=== PATIENT | male | born 1990 | race Caucasian/White ===

== ENCOUNTER 2023-01-27 10:43 | Emergency (ER) | payer OTHER, SELFPAY ==
[2023-01-27 10:57] VITALS: BP 141/77; PULSE 87; RESP 18; TEMP 36.6; O2SAT 98
--- NOTE | 2023-01-27 11:03 | ED.URI ---
HPI - URI/Sore Throat General Chief Complaint: Upper Respiratory Infection Stated Complaint: Body Aches,Diarrhea,Fatigue Time Seen by Provider: 01/27/23 10:54 Source: patient and RN notes reviewed Limitations: no limitations History of Present Illness HPI Narrative: Patient is a 32-year-old male who presents to the [facility] with complaints of generalized fatigue, body aches, and chills that started on Wednesday. He also reports a few episodes of diarrhea. Denies abdominal pain, blood in the stool, nausea, vomiting. He denies recent fevers. Denies cough, chest pain, short of breath. He reports some nasal congestion and drainage. Patient states that his son tested positive for strep last night. Patient also requesting wound check. They found he had a recent Vasectomy about 1 week ago. Patient states that his 2-year-old accidently kicked him in the testicle last night, which caused him some pain. States that the pain is slowly improving. He denies swelling, redness, drainage. Related Data Home Medications Medication Instructions Recorded Confirmed cetirizine 10 mg tablet (Zyrtec) 10 mg PO DAILY 01/27/23 01/27/23 venlafaxine 75 mg capsule,extended 75 mg PO DAILY 01/27/23 01/27/23 release 24 hr Allergies Allergy/AdvReac Type Severity Reaction Status Date / Time No Known Allergies Allergy Mild Verified 01/27/23 10:49 Review of Systems Review of Systems: CONSTITUTIONAL: Denies fever or sweats. Reports chills, fatigue. EYES: Denies visual changes, redness, or discharge. ENT: Denies ear pain and sore throat. Reports nasal congestion and drainage. CARDIOVASCULAR: Denies chest pain, palpitations, or edema. RESPIRATORY: Denies cough or dyspnea. GASTROINTESTINAL: Denies abdominal pain, nausea and vomiting. Reports diarrhea. GENITOURINARY: Denies dysuria or hematuria. SKIN: Denies rash or itching. MUSCULOSKELETAL: Denies back pain, joint pain,. Reports generalized body aches. NEUROLOGIC: Denies headache, numbness, or weakness. Pertinent positives per HPI. PMFSH Comments At the time of my signature, I reviewed and agree with the nursing past medical, surgical, social, and family history. There is no relevant family history pertinent to the patient complaint. Exam Narrative: GENERAL: This is a well-nourished, well-developed patient, in no apparent distress. HEAD: normocephalic, atraumatic. EYES: Sclera clear/white. Vision is grossly intact. EARS: External ears normal, auditory canals clear and without drainage. Hearing grossly intact. NOSE: External nose normal with no obvious nasal discharge, nares without redness. Mild congestion. THROAT: Mucous membranes moist, oropharyngeal erythema without exudate or ulceration. NECK: Neck supple, non-tender without lymphadenopathy, masses or thyromegaly. CARDIOVASCULAR: Regular rate and rhythm without murmurs, gallops, or rubs. RESPIRATORY: Clear to auscultation. Breath sounds equal bilaterally. No wheezes, rales, or rhonchi. GASTROINTESTINAL: Abdomen soft, non-tender, nondistended. Bowel sounds are active. No hepato-splenomegaly, or palpable masses. No guarding. : Vasectomy incision sites are healing well. There are no signs of infection, erythema, swelling. Skin glue still present. There is no testicular tenderness, erythema, or swelling present. SKIN: warm, intact with no suspicious lesions or rash, good texture and turgor. NEURO: awake, alert, and oriented to person, place and time. There were no obvious focal neurologic abnormalities. Course Course Level of Care: Express Care Visit Vital Signs Vital signs: Vital Signs Temperature 97.8 F 01/27/23 10:57 Pulse Rate 87 01/27/23 10:57 Respiratory Rate 18 01/27/23 10:57 Blood Pressure 141/77 H 01/27/23 10:57 Pulse Oximetry 98 01/27/23 10:57 Oxygen Delivery Room Air 01/27/23 10:57 Temperature 97.8 F 01/27/23 10:57 Pulse Rate 87 01/27/23 10:57 Respiratory Rate 18 01/27/23 10:57 Blood Pr
== END 2023-01-27 11:24 | disposition home or self-care (01) ==
PROVIDERS: Emergency Provider Nurse Practitioner; PCP Family Medicine
DX: B34.9 Viral infection, unspecified (principal); Z48.01 Encounter for change or removal of surgical wound dressing; F41.9 Anxiety disorder, unspecified; Z98.52 Vasectomy status; Z86.16 Personal history of COVID-19
CPT/HCPCS: 87081; 87880; 99213; G0463

== ENCOUNTER 2024-06-25 09:02 | Emergency (ER) | payer SELFPAY ==
--- NOTE | ~2024-06-25 | XR_ITS ---
EXAMINATION: [id number] DATE: 06/25/2024 09:36 INDICATION: Mid anterior chest pain post fall from trampoline 8 days prior TECHNIQUE: AP view of the chest and ribs with 2 additional views of the left ribs were obtained. COMPARISON: None FINDINGS: No rib fractures identified. No pneumothorax. No focal infiltrates, pleural effusion or pulmonary stanley ma. Cardiomediastinal silhouette is normal. IMPRESSION: 1. No rib fracture or acute cardiopulmonary disease. Reviewed, dictated and finalized at location A.
--- NOTE | 2024-06-25 09:06 | ED.GENADULT ---
HPI - General Adult General Chief complaint: Extremity Injury, Upper Stated complaint: left side rib pain Time Seen by Provider: 06/25/24 09:45 Source: patient, RN notes reviewed and old records reviewed Mode of arrival: ambulatory Limitations: no limitations History of Present Illness HPI narrative: 33-year-old male presents to the [facility] with complaints of left-sided rib pain last wednesday fall to the left side, reports [place] was [place], fell landing on a metal part the [email or web address] States that Advil has been helping No bruising or swelling noted. Pain is worse when he coughs or sneezes Onset (ago): week(s) (1) Treatments prior to arrival: NSAID Related Data Home Medications Medication Instructions Recorded Confirmed cetirizine 10 mg tablet (Zyrtec) 10 mg PO DAILY 01/27/23 06/25/24 venlafaxine 75 mg capsule,extended 75 mg PO DAILY 01/27/23 06/25/24 release 24 hr Allergies Allergy/AdvReac Type Severity Reaction Status Date / Time No Known Allergies Allergy Mild Verified 06/25/24 09:07 Review of Systems Review of Systems: All systems reviewed & are unremarkable except as noted in HPI and below Constitutional: Constitutional: Reports no additional constitutional complaints Eyes: Eyes: Reports no additional eye complaints ENT: Reports system reviewed and no additional complaints, except as documented Cardiovascular: Cardiovascular: Reports no additional cardiovascular complaints, Denies chest pain and Denies dyspnea Respiratory: Respiratory: Reports no additional respiratory complaints, Denies chest congestion, Denies cough and Denies dyspnea Gastrointestinal: Gastrointestinal: Reports no additional gastrointestinal complaints, Denies abdominal pain, Denies nausea and Denies vomiting Musculoskeletal: Musculoskeletal: Reports as per HPI Integumentary/Breasts: Skin/Breast: Reports system reviewed and no additional complaints, except as docu Neurologic: Reports system reviewed and no additional complaints, except as documented Psychiatric: Psychiatric: Reports no additional psychiatric complaints Allergic/Immunologic: Allergic/Immunologic: Reports no additional allergic/immunologic complaints PMFSH Comments At the time of my signature, I reviewed and agree with the nursing past medical, surgical, social, and family history. There is no relevant family history pertinent to the patient complaint. Exam Const: General: cooperative, healthy appearing, comfortable, no acute distress, well developed, alert and well nourished Nutritional Appearance: well nourished Orientation/consciousness: patient oriented x3 Limitations: no limitations HENMT: Head: normal to inspection Ears: hearing grossly normal bilaterally and external ears normal Face/Nose/Sinus: Normal external nose present, Normal nares present, Normal nasal mucous membranes and turbinates present, normal facial exam and face symmetric Face and sinus: normal facial exam and face symmetric Eyes: General: appearance normal, both eyes and all related structures Alignment and Position: alignment normal Periorbital: periorbital findings normal Neck: Neck: normal visual inspection, full ROM, no lymphadenopathy and no meningeal signs Chest: Chest palpation & inspection: normal inspection of the chest Chest/axillae images: 1. Reports discomfort with sneezing, coughing. Able to take deep breaths. No bruising or swelling noted. No erythema. No rashes. Resp: Effort & Inspection: normal respiratory effort and able to speak in complete sentences Auscultation: clear to auscultation bilaterally, no crackles, no rales, no rhonchi and no wheezes Cardio: Rate: regular rate Rhythm: regular rhythm Skin: General skin exam: normal color and no rashes or lesions noted Lesions: no lesions Rashes: no rashes Trauma: no lacerations or abrasions Wounds: no wounds Neuro: General: patient oriented x3, gait normal, tone normal, moves all extremi
[2024-06-25 09:11] VITALS: BP 123/87; PULSE 80; RESP 16; TEMP 36.5; O2SAT 100
== END 2024-06-25 10:04 | disposition home or self-care (01) ==
PROVIDERS: Emergency Provider Nurse Practitioner; PCP Family Medicine
DX: S20.212A Contusion of left front wall of thorax, initial encounter (principal); W19.XXXA Unspecified fall, initial encounter; Y93.44 Activity, trampolining; Y92.838 Other recreation area as the place of occurrence of the external cause; F41.9 Anxiety disorder, unspecified; Z86.16 Personal history of COVID-19
CPT/HCPCS: 71101; 99213; G0463

== ENCOUNTER 2025-05-14 11:08 | Emergency (ER) | payer OTHER, SELFPAY ==
--- NOTE | 2025-05-14 11:10 | ED_ITS ---
HPI - General Adult General Chief complaint: Skin/Abscess/Foreign Body Stated complaint: allergic reaction Source: patient and RN notes reviewed Mode of arrival: ambulatory Limitations: no limitations History of Present Illness HPI narrative: Patient is a 34-year-old male who presents to the [facility] with complaints generalized rash for the past 3 days. Patient reports itchy rash to his neck. He also reports redness and bumps to his bilateral legs and arms. He states that he is frequently works outside but has not been in the last couple weeks. Denies trouble swallowing or difficulty breathing. Denies recent illness or fever. Related Data Home Medications ?Medication ?Instructions ?Recorded ?Confirmed ?Last Taken ?Type cetirizine 10 mg tablet (Zyrtec) 10 mg PO DAILY 06/25/24 Unknown History venlafaxine 75 mg capsule,extended 75 mg PO DAILY 01/1806/25/24 Unknown History release 24 hr Allergies Allergy/AdvReac Type Severity Reaction Status Date / Time No Known Allergies Allergy Mild Verified 05/14/25 11:21 Review of Systems Review of Systems: CONSTITUTIONAL: Denies fever, chills, or sweats. EYES: Denies visual changes, redness, or discharge. ENT: Denies otalgia and sore throat CARDIOVASCULAR: Denies chest pain, palpitations, or edema. RESPIRATORY: Denies cough or dyspnea. GASTROINTESTINAL: Denies abdominal pain, nausea, vomiting, or diarrhea. GENITOURINARY: Denies dysuria or hematuria. SKIN: Reports rash and itching. MUSCULOSKELETAL: Denies back pain, joint pain, or myalgia. NEUROLOGIC: Denies headache, numbness, or weakness. Pertinent positives per HPI. PMFSH Comments At the time of my signature, I reviewed and agree with the nursing past medical, surgical, social, and family history. There is no relevant family history pertinent to the patient complaint. Exam Narrative: GENERAL: This is a well-nourished, well-developed patient, in no apparent distress. HEAD: normocephalic, atraumatic. EYES: Sclera clear/white. Vision is grossly intact. EARS: External ears normal. Hearing grossly intact. NOSE: External nose normal with no obvious nasal discharge, nares without redness, no rhinorrhea. THROAT: Mucous membranes moist, posterior pharynx clear. NECK: Neck supple, non-tender without lymphadenopathy, masses or thyromegaly. CARDIOVASCULAR: Regular rate and rhythm without murmurs, gallops, or rubs. RESPIRATORY: Clear to auscultation. Breath sounds equal bilaterally. No wheezes, rales, or rhonchi. GASTROINTESTINAL: Abdomen soft, non-tender, nondistended. Bowel sounds are active. No hepato-splenomegaly, or palpable masses. No guarding. SKIN: Urticarial rash to neck. Raised, reddened papules to bilateral ankles and wrists. No surrounding erythema or induration. NEURO: awake, alert, and oriented to person, place and time. There were no obvious focal neurologic abnormalities. Course Course Level of Care: Express Care Visit Vital Signs Vital signs: Vital Signs Temperature 97.3 F L 05/14/25 11:14 Pulse Rate 75 05/14/25 11:14 Respiratory Rate 16 05/14/25 11:14 Blood Pressure 132/92 H 05/14/25 11:14 Pulse Oximetry 100 05/14/25 11:14 Oxygen Delivery Room Air 05/14/25 11:14 Temperature 97.3 F L 05/14/25 11:14 Pulse Rate 75 05/14/25 11:14 Respiratory Rate 16 05/14/25 11:14 Blood Pressure 132/92 H 05/14/25 11:14 Pulse Oximetry 100 05/14/25 11:14 Oxygen Delivery Room Air 05/14/25 11:14 Reviewed Medical Decision Making MDM Narrative Medical decision making narrative: The most important part of your care is follow up with Primary care provider. Take Benadryl 25-50 mg every 6 hours for itching Take Pepcid 20mg daily for 7 days Take the steroids starting today Avoid hot showers, Take cool showers. Apply a good moisturizing lotion to the skin. Return to the ER for new or worsening symptoms such as shortness of breath. Differential Diagnosis Differential Diagnosis: allergic reaction, hives, rash, insect bites Vital Signs Vital Signs: Vital Signs Temperature 97.3 F L 05/14/25 11:14 Pulse Rate 75 05/14/25 11:14 Respiratory Rate 16 05/14/25 11:14 Blood Pressure 132/92 H 05/14/25 11:14 Pulse Oximetry 100 05/14/25 11:14 Oxygen Delivery Room Air 05/14/25 11:14 Temperature 97.3 F L 05/14/25 11:14 Pulse Rate 75 05/14/25 11:14 Respiratory Rate 16 05/14/25 11:14 Blood Pressure 132/92 H 05/14/25 11:14 Pulse Oximetry 100 05/14/25 11:14 Oxygen Delivery Room Air 05/14/25 11:14 Critical Care Time Critical Care Time Critical Care Time: No Discharge Plan Discharge Clinical Impression: Contact dermatitis Qualifiers: Contact dermatitis type: unspecified Contact dermatitis trigger: unspecified trigger Qualified Code(s): L25.9 - Unspecified contact dermatitis, unspecified cause Patient Disposition: Home Condition: Stable Instructions: Contact Dermatitis (ED) Additional Instructions: The most important part of your care is follow up with Primary care provider. Take Benadryl 25-50 mg every 6 hours for itching Take Pepcid 20mg daily for 7 days Take the steroids starting today Avoid hot showers, Take cool showers. Apply a good moisturizing lotion to the skin. Return to the ER for new or worsening symptoms such as shortness of breath. Patient Language: Tristanian Prescriptions: New prednisone 50 mg tablet 50 mg PO DAILY 5 Days Qty: 5 0RF No Action venlafaxine 75 mg capsule,extended release 24hr 75 mg PO DAILY cetirizine [Zyrtec] 10 mg Tablet 10 mg PO DAILY Follow-up/Referrals: Marianne,Denny Cruz MD [Primary Care Provider, Unknown] Time of Disposition: 11:30
[2025-05-14 11:14] VITALS: BP 132/92; PULSE 75; RESP 16; TEMP 36.3; O2SAT 100
--- OUTSIDE RECORDS SUMMARY | 2025-05-14 11:51 | XMS_ITS | Encounter Summary ---
Author Organization [facility] Healthcare Address [address] [place] [address] Care Team Providers Care Tar Kettle Runner Name Role Phone Denny Lopes MD Primary Care Provider + Encounter Details Date Type Department Care Team (Late st Contact Info) Description 06/25/2024 Orders Only [facility] Health Information Management [address] [place] [id number] Scanning, Provider Social History Tobacco Use Types Packs/Day Years Used Date Smoking Tobacco: Never Smokeless Tobacco: Former Snuff Comments:Recently started tr mery to quit nicotine dependence 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 Alcohol Use Standard Drinks/Week Comments Never 0 (1 standard drink = 0.6 oz pur e alcohol) AUDIT-C Answer Date Recorded Q1: How often do you have a drink containing alc ohol? Never 01/19/2023 Average Number of Drinks Not on file 023 Frequency of Binge Drinking Not on file 10/2022 PHQ-2 Answer Date Recorded PHQ-2 Total Score (If total score is 3 or more points, staff should administer the PHQ-9) 0 10/29/2023 Personal Safety Answer Date Recorded Have you ever been in or are you currently in a harmful physical or emotional relationship or is someone making you feel afraid or unsafe? Denies 01/20/2023 Sex and Gender Information Value Date Recorded Sex Assigned at Not on file Legal Sex Male 11:49 PM [employer] Gender Identity Male 04/10/2021 10:18 AM CDT Sexual Orientation Straight 04/10/2021 10 :18 AM CDT documented as of this encounter Plan of Treatment Not on file documented as of this encounter Procedures Procedure Name Priority Date/Time Associated Diagnosis Comments SCAN - RADIOLOGY/IMAGING 06/25/2024 documented in this encounter Results * SCAN - RADIOLOGY/IMAGING (06/25/2024) Anatomical Region Laterality Modality Other us Provider Scanning Final Result documented in this encounter Visit Diagnoses Not on filedocumented in this encounter Care Teams Tar Kettle Runner Relationship Specialty [place] [address] [place] [id number] PCP - General Family Medicine 04/30/20 documented as of this encounter
--- OUTSIDE RECORDS SUMMARY | 2025-05-14 11:51 | XMS_ITS | Clinical Summary ---
Author Organization [facility] Address [address] [place] [id number] Care Team Providers Care Teradata Developer Name Role Phone Denny Lopes MD Primary Care Provider + Allergies No known active allergies Medications ibuprofen (ADVIL ORAL) Take by mouth as needed Active diphenhydramine HCl (BENADRYL ORAL) Take by mouth as needed Active venlafaxine XR (EFFEXOR-XR) 75 mg 24 hr capsuleIndicati ons:TAYLOR (generalized anxiety disorder) Take 1 capsule (75 mg total) by mouth daily 90 capsule 3 10/31/2024 6 Active Active Problems Problem Noted Date Diagnosed Date Severe sun exposure 07/14/2022 Assessment & Plan (07/14/2022 4:27 PM CDT): - ref to derm Chronic frontal sinusitis 07/14/2022 Assessment & Plan (07/14/2022 4:27 PM CDT): - continue flonase - counseled on use of flonase and zyrtec regularly - ref to ent for eval Muscle spasm 08/08/2021 Eczema 04/25/2021 Assessment & Plan (04/17/2022 2:16 PM CDT): - stable - continue current medication Assessment & Plan (08/08/2021 11:03 AM ELECTRICIAN JOURNEYMAN WIREMAN): - stable - continue current medication Assessment & Plan (04/25/2021 11:44 AM CDT): - uncontrolled - discussed care with non soap cleansers - triamcinolone topical, eucerin - f/u if no improvement Jumper's knee of left side 04/25/2021 Assessment & Plan (04/25/2021 11:43 AM CDT): - uncontrolled - home PT exercises - ibuprofen for pain - f/u in 3 mo if no improvement Allergic rhinitis 08/02/2020 Assessment & Plan (07/14/2022 4:28 PM CDT): - stable - continue current medication - ref to ent Assessment & Plan (04/17/2022 2:16 PM CDT): - stable - continue current medication Assessment & Plan (01/31/2021 11:36 AM CDT): - stable - continue current medication Assessment & Plan (08/02/2020 9:53 AM ELECTRICIAN JOURNEYMAN WIREMAN): - uncontrolled while off zyrtec - rec restart zyrtec to manage sx - f/u prn Annual physical exam 04/30/2020 Assessment & Plan (10/29/2023 9:27 AM ELECTRICIAN JOURNEYMAN WIREMAN): - Reviewed with the patient BMI, blood pressure, diet, exercise, and encouraged healthy lifestyle choices. - Screened for high risk behaviors, diet and exercise habits, and symptoms of depression. - check screening labs - encouraged regular exercise and weight loss Assessment & Plan (08/08/2021 10:59 AM ELECTRICIAN JOURNEYMAN WIREMAN): - Reviewed with the patient BMI, blood pressure, diet, exercise, and encouraged healthy lifestyle choices. - Screened for high risk behaviors, diet and exercise habits, and symptoms of depression. - no screening labs due today - encouraged regular exercise Assessment & Plan (04/30/2020 10:54 AM CDT): - normal exam - encouraged regular exercise - check lipids TAYLOR (generalized anxiety disorder) 04/30/2020 Assessment & Plan (10/29/2023 9:27 AM ELECTRICIAN JOURNEYMAN WIREMAN): - stable - continue current medication but decrease dose to 37.5mg daily - if stable after 2 mo then pt can stop effexor Assessment & Plan (04/17/2022 2:16 PM CDT): - stable - continue current medication Assessment & Plan (08/08/2021 10:59 AM ELECTRICIAN JOURNEYMAN WIREMAN): - stable - continue current medication Assessment & Plan (01/31/2021 11:36 AM CDT): - stable - continue current medication - trial taking effexor in evenings, if no improvement in side effects can trial different SSRI/SNRI Assessment & Plan (08/02/2020 9:52 AM ELECTRICIAN JOURNEYMAN WIREMAN): - controlled - continue Effexor XR 75mg daily - f/u in 6 mo Assessment & Plan (05/31/2020 12:00 PM CDT): - uncontrolled - increase effexor to 150 mg daily - f/u in 2 mo Assessment & Plan (04/30/2020 10:56 AM CDT): - uncontrolled - start effexor XR 75mg daily - clonazepam 0.5mg tid PRN for 1 mo until Effexor stabilizes sx - discussed the risks/benefits/side effects of medication - f/u in 1 mo Allergic dermatitis 04/30/2020 Assessment & Plan (08/08/2021 10:59 AM ELECTRICIAN JOURNEYMAN WIREMAN): - uncontrolled - continue trimacinolone - rec daily zyrtec - pt to call back if no improvement with zyrtec and will consider additional tx Assessment & Plan (04/30/2020 10:56 AM CDT): - frequent episodes of dermatitis due to poison yue and other weeds/bugs he contacts with his job - triamcinolone topical - discussed the risks/benefits/side effects of medication - f/u if no resolved with topical steroid Immunizations Immunization Administration Dates Next Due Influenza, Quadrivalent, Spl it, Preservative Free, Intramuscular 07/14/2022,08/08/2021,08/02/2020 Influenza, Unspecified 06/26/2024,2023(Deferred: Patient Refused),06/20/2022(Deferred: Patient Refused),06/20/2019(Deferred: Patient decision) Tdap 04/30/2020 Surgical History Surgery Date Site/Laterality Comments VASECTOMY 2022 Medical History Medical History Date Comments Anxiety Brain concussion Allergic rhinitis Pneumonia 6th grade GERD (gastroesophageal reflux disease) Family History Medical History Relation Name Comments Hypertension Brother 1 Dmitry Destini Hypertension Father Gabriel Georges Cancer Maternal Grandfather Chris Zuñiga Diabetes Maternal Grandfather Chris Zuñiga Arthritis Maternal Grandmother Cecile Zuñiag Rashes / Skin problems Mother Ana Georges Diabetes Paternal Grandfather Lamberto Georges Stroke Paternal Grandfather Lamberto Georges Kidney disease Paternal Grandmother Horacio Georges Relation Name Status Comments Brother 1 Dmitry Destini Alive Brother 2 Alive Father Gabriel Georges Alive Maternal Grandfather Chris Zuñiga Maternal Grandmother Cecile Zuñiga Mother Ana Georges Alive Paternal Grandfather Lamberto Georges Paternal Grandmother Horacio Georges Social History Tobacco Use Types Packs/Day Years Used Date Smoking Tobacco: Never Smokeless Tobacco: Former Snuff Tobacco Cessation:Counseling Given: Not Answered Comments:Recently started trying to quit nicotine dependence 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 Alcohol Use Standard Drinks/Week Comments Never 0 (1 standard drink = 0.6 oz pur e alcohol) AUDIT-C Answer Date Recorded Q1: How often do you have a drink containing alc ohol? Never 10/31/2024 Average Number of Drinks Not on file 025 Frequency of Binge Drinking Not on file 10/21 PHQ-2 Answer Date Recorded PHQ-2 Total Score (If total score is 3 or more points, staff should administer the PHQ-9) 0 10/31/2024 Personal Safety Answer Date Recorded Have you ever been in or are you currently in a harmful physical or emotional relationship or is someone making you feel afraid or unsafe? Denies 01/20/2023 Sex and Gender Information Value Date Recorded Sex Assigned at Not on file Legal Sex Male 11:49 PM ELECTRICIAN JOURNEYMAN WIREMAN Gender Identity Male 04/10/2021 10:18 AM CDT Sexual Orientation Straight 04/10/2021 10 :18 AM CDT Obstetrics History Last Filed Vital Signs Vital Sign Reading Time Taken Comments Blood Pressure 120/80 10/31/2024 7:21 AM ELECTRICIAN JOURNEYMAN WIREMAN Pulse 78 10/31/2024 7:21 AM ELECTRICIAN JOURNEYMAN WIREMAN Temperature 36.1 C (96.9 F) 10/31/2024 7:21 AM ELECTRICIAN JOURNEYMAN WIREMAN Respiratory Rate 16 10/31/2024 7:21 AM ELECTRICIAN JOURNEYMAN WIREMAN Oxygen Saturation 96% 10/31/2024 7:21 AM ELECTRICIAN JOURNEYMAN WIREMAN Inhaled Oxygen Concentration - - Weight 94.8 kg (209 lb) 10/31/2024 7:21 AM ELECTRICIAN JOURNEYMAN WIREMAN Height 182.9 cm (6') 10/31/2024 7:21 AM ELECTRICIAN JOURNEYMAN WIREMAN Body Mass Index 28.35 10/31/2024 7:21 AM ELECTRICIAN JOURNEYMAN WIREMAN Plan of Treatment Health Maintenance Due Date Last Done Comments Hepatitis C Screening 1989 Hepatitis B Screening 2007 HPV Vaccines (1 - 3-dose SCDM series) 2016 Covid-19 Vaccine ( season) 2024 10/02/2021, 01/17/2021, 12/20/2020 Influenza Vaccine (#1) 2025 , 07/14/2022, 08/08/2021, Additional history exists Depression Screening 10/31/2025 10/31/2024, 10/29/2023, 04/17/2022, Additional history exists Regular Well Visit/Exam 18-64 10/31/2025 10/31/2024, 10/29/2023, 08/08/2021, Additional history exists DTaP/Tdap/Td Vaccine (2 - Td or Tdap) 04/30/2030 04/30/2020 Pneumococcal vaccine <65 Aged Out No longer eligible based on patient's age to complete this topic Varicella Vaccines Discontinued Insurance [facility] Address: [address] [address] [place] [address] [facility]O Address: [address] [address] [place] [address] [facility] Care Teams Teradata Developer Relationship Specialty Start Date End Date Denny Lopes MD [address] [place] [id number] PCP - General Family Medicine 04/30/20
--- OUTSIDE RECORDS SUMMARY | 2025-05-14 11:53 | XMS_ITS | Clinical Summary ---
Author Organization [facility] Address [facility]ly [facility], [facility] [place] [address] Care Team Providers Care Director Digital Name Role Phone Unavailable Primary Care Provider Unavailabl e Social History Tobacco Use Types Packs/Day Years Used Date Smoking Tobacco: Never Assessed Sex and Gender Information Value Date Recorded Sex Assigned at Not on file Legal Sex Male 7:45 PM CDT Gender Identity Not on file Sexual Orientation Not on file Last Filed Vital Signs Vital Sign Reading Time Taken Comments Blood Pressure 112/84 03/06/2014 11:07 AM CDT Pulse - - Temperature - - Respiratory Rate - - Oxygen Saturation - - Inhaled Oxygen Concentration - - Weight 72.6 kg (160 lb) 03/06/2014 11:07 AM CDT Height 185.4 cm (6' 1) 03/06/2014 11:07 AM CDT Body Mass Index 21.11 03/06/2014 11:07 AM CDT Plan of Treatment Health Maintenance Due Date Last Done Comments Annual Physical 1992 Hepatitis C 2007 DTaP, Tdap and Td Vaccines ( 1 - Tdap) 2008 Hepatitis B Vaccines (1 of 3 - 19+ 3-dose series) 2008 HPV Vaccines (1 - 3-dose SCD M series) 2016 COVID-19 Vaccine ( - 2023-2 5 season) 2024 Meningococcal B Vaccine Aged Out No l onger eligible based on patient's age to complete this topic Meningococcal Vaccine Aged Out No marva saumya eligible based on patient's age to complete this topic Pneumococcal Vaccine: Pediat rics (0 to 5 Years) and At-Risk Patients (6 to 49 Years) Aged Out No longer eligible b ased on patient's age to complete this topic RSV Immunizations Under 20 Months Aged Out No longer eligible based on patient's age to complete this topic
== END 2025-05-14 11:40 | disposition home or self-care (01) ==
PROVIDERS: Emergency Provider Nurse Practitioner; PCP Family Medicine
DX: L25.9 Unspecified contact dermatitis, unspecified cause (principal); F41.9 Anxiety disorder, unspecified; Z86.16 Personal history of COVID-19
CPT/HCPCS: 99213; G0463